=== PATIENT | male | born 1955 | race Two or more races ===

== ENCOUNTER 2024-08-04 01:56 | Emergency (ER) | payer BC, OTHER ==
[~2024-08-04] VITALS: Ht 175.3 cm; Wt 81.8 kg
--- NOTE | 2024-08-04 03:08 | ED.PDOC ---
Musculoskeletal HPI Comments A 69 year old male brought in by EMS presents to the ED with a chief complaint of LT shoulder pain onset 1 month. Patient states he was carrying a case of water when he felt a "tear" on his LT shoulder. Since then, patient is not able to move LT arm due to pain. He has a past medical history of HTN and states he currently has no PCP. No other symptoms or modifying factors present at this time. Chief Complaint: Upper Extremity Time Seen by MD: 02:56 Reviewed Notes: Medications, Allergies Allergies: Coded Allergies: NO KNOWN ALLERGIES (Unverified , 08/04/24) Information Source: Patient Mode of Arrival: EMS Location: Left Extremity Location: Shoulder Timing: Months Prehospital treatment: None Severity: Moderate Pain: Moderate Symptoms: Pain Associated signs and symptoms: Shoulder pain Past Medical History PAST MEDICAL HISTORY: HTN Surgical History: Denies all surgeries Family History Family History: Reviewed,noncontributory to illness Social History Smoker: Cigarettes Alcohol: Denies ETOH Use Drugs: Denies Drug Use Lives In: Home Constitutional: denies: chills, diaphoresis, fatigue, fever, malaise, sweats, weakness, others EENTM: denies: blurred vision, double vision, ear bleeding, ear discharge, ear drainage, ear pain, ear ringing, eye pain, eye redness, hearing loss, mouth pain, mouth swelling, nasal discharge, nose bleeding, nose congestion, nose pain, photophobia, tearing, throat pain, throat swelling, voice changes, others Respiratory: denies: cough, hemoptysis, orthopnea, SOB at rest, shortness of breath, SOB with excertion, stridor, wheezing, others Cardiovascular: denies: chest pain, dizzy spells, diaphoresis, Dyspnea on exertion, edema, irregular heart beat, left arm pain, lightheadedness, palpitations, PND, syncope, others Gastrointestinal: denies: abdomen distended, abdominal pain, blood streaked bowels, constipated, diarrhea, dysphagia, difficulty swallowing, hematemesis, melena, nausea, poor appetite, poor fluid intake, rectal bleeding, rectal pain, vomiting, others Genitourinary: denies: burning, dysuria, flank pain, frequency, hematuria, incontinence, penile discharge, penile sore, pain, testicle pain, testicle swelling, urgency, others Neurological: denies: dizziness, fainting, headache, left sided numbness, left sided weakness, numbness, paresthesia, pre-existing deficit, right sided numbness, right sided weakness, seizure, speech problems, tingling, tremors, weakness, others Musculoskeletal: denies: back pain, gout, joint pain, joint swelling, muscle pain, muscle stiffness, neck pain, others Integumetry: denies: bruises, change in color, change in hair/nails, dryness, laceration, lesions, lumps, rash, wounds, others Allergic/Immunocompromised: denies: Difficulty Healing, Frequent Infections, Hives, Itching, others Hematologic/Lymphatic: denies: anemia, blood clots, easy bleeding, easy bruising, swollen glands, others Endocrine: denies: excessive hunger, excessive sweating, excessive thirst, excessive urination, flushing, intolerance to cold, intolerance to heat, unexplained weight gain, unexplained weight loss, others Psychiatric: denies: anxiety, bipolar disorder, depression, hopeless, panic disorder, schizophrenia, sleepless, suicidal, others All Other Systems: Reviewed and Negative Physical Exam General Appearance: Mild Distress, Normal HEENT: Normal ENT Inspection, Pharynx Normal, TMs Normal Neck: Full Range of Motion, Non-Tender, Normal, Normal Inspection Respiratory: Chest Non-Tender, Lungs Clear, No Accessory Muscle Use, No Respiratory Distress, Normal Breath Sounds Cardiovascular: No Edema, No JVD, No Murmur, No Gallop, Normal Peripheral P ulses, Regular Rate/Rhythm Breast Exam: Deferred Gastrointestinal: No Organomegaly, Non Tender, No Pulsatile Mass, Normal Bowel Sounds, Soft Genitalia: Deferred Pelvic: Deferred Rectal: Deferred Extremities: No calf tenderness, Normal capillary refill, Normal inspection, Normal range of motion, Non-tender, No pedal edema Musculoskeletal : Location: Left Extremity Location: Shoulder (Decreased range of motion with moderate pain/tenderness) Apperance: Normal Neurologic: Alert, film mounter II-XII nml as Tested, No Motor Deficits, Normal Affect, Normal Mood, No Sensory Deficits Cerebellar Function: Normal Reflexes: Normal Skin: Dry, Normal Color, Warm Lymphatic: No Adenopathy Was a procedure done? Was a procedure done?: No Differential Diagnosis EXT Differential Diagnosis: Fracture, Sprain, Dislocation, Strain X-Ray, Labs, Meds, VS Vital Signs Date Time Temp Pulse Resp B/P (MAP) Pulse Ox O2 Delivery O2 Flow Rate FiO2 08/04/24 02:08 97.4 88 18 146/92 (310) 07 [facility] [id number] [facility] [id number] Ph: [phone] DIAGNOSTIC IMAGING Diagnostic Imaging Report : [id number] Signed PATIENT: BILL SAUL GACCT: [id number] UNIT: [id number] : 1955 LOC: ER ROOM / BED: / AGE / SEX: 69 / M ADM STATUS: REG ER SERVICE 2 ORDERING PHYSICIAN: AVA AGUILLON MD PROCEDURE(s): LSHD2 - L SHOULDER 2+ VIEW XRAY REASON: shoulder pain ORDER NUMBER(s): [id number], ACCESSION NUMBER(s): [id number] CLINICAL INDICATION: shoulder pain TECHNIQUE: XY L SHOULDER 2+ VIEW XRAY Comparison: None FINDINGS/IMPRESSION: There is no evidence of acute fracture or dislocation. The visualized joint space is well maintained. The alignment is anatomical. There is no radiopaque foreign body. ATED BY: ELDON SALAZAR MD DICTATED DATE/TIME: 08/04/24356 SIGNED BY: ELDON SALAZAR MD SIGNED DATE/TIME: 08/04/24356 CC: Patient is recommended to follow up at [facility] for further evaluation. He does not have a primary medical doctor at this time. Time of 1ST Reevaluation: 03:26 Reevaluation 1ST: Unchanged Patient Education/Counseling: Diagnosis, Treatment, Prognosis Family Education/Counseling: No Family Present Departure 1 Departure Time of Disposition: 04:22 Impression: Primary Impression: Internal derangement of left shoulder Disposition: 01 HOME / SELF CARE / HOMELESS Condition: Stable Additional Instructions: Reassessed patient, vital signs stable. Denies any new symptoms. Patient is able to tolerate PO and ambulate/be mobile at their baseline without concern. Risks and benefits of all medications given or prescribed, if any, discussed. All lab work, imaging and diagnostic studies were reviewed by me. The patient was counseled extensively on my clinical impression, diagnosis, expected course of the disease, and plan, including their follow-up care. Will discharge patient. Patient instructed to follow up with Primary Care Physician/[facility] within 24-48 hours. Strict return precautions given for further exacerbation of symptoms or for new symptoms. The patient was given the opportu nity to ask questions and all questions were answered by myself and the nursing/tech staff. Patient is in agreement with the care plan. The patient verbally expressed understanding of the discharge instructions, including the reasons to return to the Emergency Department. e-Prescriptions Hydrocodone-Acetaminophen (Hydrocodone Bitartrate/AC 10-325 mg) 1 Tab Tab 1 TAB PO QIDPRN, #20 TAB Prov: AVA AGUILLON MD 08/04/24 Ibuprofen (Advil) 200 Mg Tab 800 MG PO TID, #30 TAB Prov: AVA AGUILLON MD 08/04/24 Discharged With: Self Critical Care Note Critical Care Time?: No Stability Stability form required: No I personally scribed for AVA AGUILLON MD ([email or web address]) on 08/04/24 at 03:08. Electronically submitted by Mary Cruz ([email or web address]). I personally scribed for AVA AGUILLON MD ([email or web address]) on 08/04/24 at 04:07. Electronically submitted by Mary Cruz ([email or web address]). AVA AGUILLON MD Aug 04, 2024 03:08
--- NOTE | 2024-08-04 04:00 | DVH ---
CLINICAL INDICATION: shoulder pain TECHNIQUE: XY L SHOULDER 2+ VIEW XRAY Comparison: None FINDINGS/IMPRESSION: There is no evidence of acute fracture or dislocation. The visualized joint space is well maintained. The alignment is anatomical. There is no radiopaque foreign body.
[2024-08-04] MEDS ORDERED: HYDR-4798 PO (04:25)
[2024-08-04] MEDS ORDERED: IBUP200T76 PO (04:25)
[2024-08-04 05:35] VITALS: BP 147/96; PULSE 88; RESP 17; TEMP 98.7; O2SAT 99
[2024-08-04] MEDS: HYDROcodone-ACET 10/325MG TAB PO ONE (05:48)
== END 2024-08-04 06:07 | disposition home or self-care (01) ==
LOC: ER 01:56 → EDBD 01:56 → ER 06:07
DX: M24.812 Other specific joint derangements of left shoulder, not elsewhere classified (principal); I10 Essential (primary) hypertension; F17.210 Nicotine dependence, cigarettes, uncomplicated
CPT/HCPCS: 73030